=== PATIENT | female | born 1945 | race Caucasian/White ===

== ENCOUNTER 2018-03-18 22:00 | Inpatient (IN) | payer OTHER ==
[~2018-03-18] VITALS: Ht 152.4 cm; Wt 78.0 kg
[2018-03-18 22:04] VITALS: Ht 152.4 cm; Wt 78.0 kg
[2018-03-19 00:31] LABS: BASOPHIL % 0.2 % (0-2); PLATELET COUNT 227 x10^3mcL (130-400); RED CELL DISTRIBUTION WIDTH 14.1 % (11.5-14.5)
[2018-03-19 00:42] LABS: CALCIUM 8.8 mg/dL (8.5-10.1); CARBON DIOXIDE 28.5 mmol/L (21-32); CHLORIDE SERUM 104 mmol/L (98-107); CREATININE SERUM 0.7 mg/dL (0.6-1.0); GLUCOSE SERUM 145 mg/dL (74-106); POTASSIUM SERUM 3.8 mmol/L (3.5-5.1); SODIUM SERUM 138 mmol/L (136-145)
[2018-03-19 00:46] LABS: ALBUMIN 3.8 g/dL (3.4-5.0); ALKALINE PHOSPHATASE 72 U/L (46-116); ALT/SGPT 37 U/L (14-59); AMYLASE 57 U/L (25-115); AST/SGOT 23 U/L (15-37); BILIRUBIN TOTAL 0.3 mg/dL (0.20-1.00); LIPASE 89 IU/L (73-393); TOTAL PROTEIN, SERUM 7.9 g/dL (6.4-8.2)
[2018-03-19 03:16] VITALS: BP 143/68
[2018-03-19 06:11] VITALS: BP 147/50
[2018-03-19 06:51] LABS: BASOPHIL % 0.2 % (0-2); PLATELET COUNT 199 x10^3mcL (130-400); RED CELL DISTRIBUTION WIDTH 13.4 % (11.5-14.5)
[2018-03-19 07:06] LABS: CARBON DIOXIDE 24.8 mmol/L (21-32); CHLORIDE SERUM 105 mmol/L (98-107); CREATININE SERUM 0.7 mg/dL (0.6-1.0); GLUCOSE SERUM 156 mg/dL (74-106); POTASSIUM SERUM 4.1 mmol/L (3.5-5.1); SODIUM SERUM 139 mmol/L (136-145)
[2018-03-19 15:27] VITALS: BP 130/40
[2018-03-19 20:24] VITALS: BP 113/45
[2018-03-20 05:32] VITALS: BP 112/47
[2018-03-20 09:07] VITALS: BP 164/56
[2018-03-20 10:48] VITALS: BP 164/56
== END 2018-03-20 11:38 | disposition home or self-care (01) | DRG 337 ==
LOC: ED 22:00 → MU 03-19 01:45
PROVIDERS: Emergency Medicine; Internal Medicine Pulmonary Disease; Surgery
PROC: 0DJD4ZZ Inspection of Lower Intestinal Tract, Percutaneous Endoscopic Approach (ICD-10-PCS; 2018-03-19)
PROC: 0DNW0ZZ Release Peritoneum, Open Approach (ICD-10-PCS; 2018-03-19)
PROC: 0DTJ0ZZ Resection of Appendix, Open Approach (ICD-10-PCS; principal; 2018-03-19 07:30)
DX: K35.3 Acute appendicitis with localized peritonitis (principal); I10 Essential (primary) hypertension; K66.0 Peritoneal adhesions (postprocedural) (postinfection); Z68.33 Body mass index [BMI] 33.0-33.9, adult
CPT/HCPCS: 97116-GP; J0330; J1170; J2175; J2250; J2270; J2405; J2543; J2550; J2704; J2710; J3010; J3490; J7030; J7120; Q0092

== ENCOUNTER 2018-03-27 08:45 | Inpatient (IN) | payer OTHER ==
[~2018-03-27] VITALS: Ht 154.9 cm; Wt 75.9 kg
[2018-03-27 08:52] VITALS: Ht 154.9 cm; Wt 75.9 kg
[2018-03-27 09:47] LABS: BASOPHIL % 0.5 % (0-2); PLATELET COUNT 394 x10^3mcL (130-400); RED CELL DISTRIBUTION WIDTH 14.3 % (11.5-14.5)
[2018-03-27 09:57] LABS: CALCIUM 8.6 mg/dL (8.5-10.1); CARBON DIOXIDE 23.5 mmol/L (21-32); CHLORIDE SERUM 103 mmol/L (98-107); CREATININE SERUM 0.8 mg/dL (0.6-1.0); GLUCOSE SERUM 115 mg/dL (74-106); POTASSIUM SERUM 3.2 mmol/L (3.5-5.1); SODIUM SERUM 139 mmol/L (136-145)
[2018-03-27 13:57] VITALS: BP 124/49
[2018-03-27 18:11] VITALS: BP 136/60
[2018-03-27 20:41] VITALS: BP 131/54
[2018-03-28 04:20] VITALS: BP 126/58
[2018-03-28 06:03] LABS: BASOPHIL % 0.3 % (0-2); PLATELET COUNT 370 x10^3mcL (130-400)
[2018-03-28 06:19] LABS: CALCIUM 8.4 mg/dL (8.5-10.1); CARBON DIOXIDE 22.4 mmol/L (21-32); CHLORIDE SERUM 104 mmol/L (98-107); CREATININE SERUM 0.7 mg/dL (0.6-1.0); GLUCOSE SERUM 131 mg/dL (74-106); MAGNESIUM 1.9 mg/dL (1.8-2.4); POTASSIUM SERUM 3.7 mmol/L (3.5-5.1); SODIUM SERUM 136 mmol/L (136-145)
[2018-03-28 06:50] VITALS: BP 126/53
[2018-03-28 08:33] VITALS: BP 131/58
[2018-03-28 17:23] VITALS: BP 145/58
[2018-03-28 20:45] VITALS: BP 137/54
[2018-03-29 05:35] VITALS: BP 118/45
[2018-03-29 05:56] LABS: BASOPHIL % 0.5 % (0-2); RED CELL DISTRIBUTION WIDTH 14.1 % (11.5-14.5)
[2018-03-29 06:24] LABS: CALCIUM 8.5 mg/dL (8.5-10.1); CARBON DIOXIDE 22.8 mmol/L (21-32); CHLORIDE SERUM 103 mmol/L (98-107); GLUCOSE SERUM 135 mg/dL (74-106); MAGNESIUM 1.8 mg/dL (1.8-2.4); POTASSIUM SERUM 4.1 mmol/L (3.5-5.1); SODIUM SERUM 137 mmol/L (136-145)
[2018-03-29 07:03] LABS: PLATELET COUNT 410 x10^3mcL (130-400)
[2018-03-29 08:59] VITALS: BP 125/73
[2018-03-29] MEDS ORDERED: CIPRO500 MG PO (11:48)
[2018-03-29] MEDS ORDERED: AMOXICILLIN/CLA1 TA6 PO (11:48)
[2018-03-29 13:10] VITALS: BP 125/73
== END 2018-03-29 13:50 | disposition home health service (06) | DRG 858 ==
LOC: ED 08:45 → MU 12:36
PROVIDERS: Emergency Medicine; Internal Medicine Pulmonary Disease
PROC: 0J980ZZ Drainage of Abdomen Subcutaneous Tissue and Fascia, Open Approach (ICD-10-PCS; principal; 2018-03-28)
DX: T81.41XA Infection following a procedure, superficial incisional surgical site, initial encounter (principal); I10 Essential (primary) hypertension; B96.5 Pseudomonas (aeruginosa) (mallei) (pseudomallei) as the cause of diseases classified elsewhere; Y83.9 Surgical procedure, unspecified as the cause of abnormal reaction of the patient, or of later complication, without mention of misadventure at the time of the procedure; Y92.89 Other specified places as the place of occurrence of the external cause; Z68.33 Body mass index [BMI] 33.0-33.9, adult
CPT/HCPCS: J2001; J2405; J2543; J3370; J7030